=== PATIENT | female | born 1995 | race Caucasian/White ===

== ENCOUNTER 2018-01-03 06:22 | Emergency (ER) | payer MEDICAID ==
[~2018-01-03] VITALS: Ht 5283.9 cm; Wt 100.0 kg
[2018-01-03 06:26] VITALS: BP 154/87
[2018-01-03] MEDS ORDERED: ibuprofen tablet 400 MG TABLET PO ONE (06:50)
[2018-01-03] MEDS ORDERED: HYDR-3965 PO (06:52)
[2018-01-03] MEDS ORDERED: ONDA4TAB9 PO (06:52)
== END 2018-01-03 07:41 | disposition home or self-care (01) ==
LOC: ER 06:23
DX: K04.7 Periapical abscess without sinus (principal)
CPT/HCPCS: 99283